=== PATIENT | female | born 1950 ===

== ENCOUNTER → 2024-02-06 | Outpatient (CLI) | payer OTHER ==
[2024-02-06 14:12] LABS: C DIFFICILE DNA NEGATIVE (Negative)
[2024-02-15 08:04] LABS: OVA AND PARASITE,FECAL INTERP Negative (Negative)
== END ==
LOC: LAB 09:13 → LAB SHORT 09:13
PROVIDERS: Physician Assistant
DX: R19.7 Diarrhea, unspecified (principal); R10.9 Unspecified abdominal pain
CPT/HCPCS: 87177; 87209; 87493

== ENCOUNTER 2024-11-29 07:43 | Emergency (ER) | payer OTHER ==
[~2024-11-29] VITALS: Ht 167.6 cm; Wt 81.7 kg
== END 2024-11-29 10:02 | disposition home or self-care (01) ==
LOC: ER 07:43
DX: S42.202A Unspecified fracture of upper end of left humerus, initial encounter for closed fracture (principal); M97.32XA Periprosthetic fracture around internal prosthetic left shoulder joint, initial encounter; W01.0XXA Fall on same level from slipping, tripping and stumbling without subsequent striking against object, initial encounter; Z88.5 Allergy status to narcotic agent
CPT/HCPCS: 73060; 73090; 99283-25; A9270